=== PATIENT | female | born 1955 | race Caucasian/White ===

== ENCOUNTER 2024-08-28 06:34 | Inpatient (IN) | payer MEDICARE ==
[~2024-08-28] VITALS: Ht 165.1 cm; Wt 84.4 kg
[~2024-08-28 06:34] MED LIST: AMARYL1 MG PO; CITALOPRAM40 MG PO; JANUVIA100 MG PO; LISINOPRIL10 MG PO; METFORMIN1000 MG PO; PRILOSEC20 MG PO; PROTONIX40 MG PO; ZANTAC150 MG PO
[2024-08-28 06:39] VITALS: BP 150/53
[2024-08-28] MEDS ORDERED: ELIQUIS5 M1 PO (06:53)
[2024-08-28] MEDS ORDERED: AMIODARONE HYD200 MG PO (06:53)
[2024-08-28] MEDS ORDERED: CARBIDOPA-LEVO1 EAC1 PO (06:54)
[2024-08-28] MEDS ORDERED: CITALOPRAM20 MG PO (06:54)
[2024-08-28] MEDS ORDERED: JARDIANCE10 MG PO (06:55)
[2024-08-28] MEDS ORDERED: COLACE100 MG PO (06:55)
[2024-08-28] MEDS ORDERED: FLOMAX0.4 MG PO (06:57)
[2024-08-28] MEDS ORDERED: FENTANYL1 EAC3 T (06:57)
[2024-08-28] MEDS ORDERED: GLIMEPIRIDE4 M1 PO (06:58)
[2024-08-28] MEDS ORDERED: LANTUS100 UNIT/1 SQ (06:59)
[2024-08-28] MEDS ORDERED: LASIX20 MG PO (07:00)
[2024-08-28] MEDS ORDERED: LOSARTAN POTAS100 M1 PO (07:00)
[2024-08-28] MEDS ORDERED: METHIMAZOLE5 M1 PO (07:02)
[2024-08-28] MEDS ORDERED: METOPROLOL SUCC50 M1 PO (07:03)
[2024-08-28] MEDS ORDERED: OMEPRAZOLE MAGN20 MG PO (07:04)
[2024-08-28] MEDS ORDERED: PERCOCET 10-321 EACH PO (07:04)
[2024-08-28] MEDS ORDERED: PRESERVISION A1 EAC7 PO (07:05)
[2024-08-28] MEDS ORDERED: ROSUVASTATIN CAL5 MG PO (07:06)
[2024-08-28] MEDS ORDERED: VITAMIN D350 MC3 PO (07:08)
[2024-08-28 07:13] LABS: BASO % 0.3 % (0.0-1.0); EOS # 0.2 10*3/uL (0.0-0.4); EOS % 1.8 % (1.0-4.0); HEMATOCRIT 30.2 % (37.0-47.0); MEAN CELL VOLUME 97.1 fl (81.0-99.0); MEAN CORPUSCULAR HGB 29.6 pg (27.0-31.0); MEAN CORPUSCULAR HGB CONC 30.5 g/dl (33.0-37.0); MEAN PLATELET VOLUME 8.7 fl (9.6-12.3); MONO # 0.7 10*3/uL (0.1-1.0); MONO % 7.7 % (3.0-9.0); NEUT # 7.2 10*3/uL (2.3-7.9); NEUT % 80.9 % (47.0-73.0); PLATELET COUNT AUTOMATED 276 10*3/uL (130-400); RED BLOOD COUNT 3.11 10*6/uL (4.10-5.10); RED CELL DISTRI WIDTH 14.7 % (0-14.5); WHITE BLOOD COUNT 8.9 10*3/uL (4.8-10.8)
[2024-08-28 07:49] LABS: POTASSIUM 4.3 mmol/L (3.4-5.1)
[2024-08-28 08:12] LABS: BILIRUBIN Negative (Negative); BLOOD 2+ (Negative); CLARITY Turbid (Clear); COLOR Red (Yellow); GLUCOSE Negative (Negative); KETONE Negative (Negative); LEUKO ESTERASE 3+ (Negative); NITRITE Negative (Negative); UROBILINOGEN 0.2 E.U./dl (0.0-1.0)
[2024-08-28 08:18] LABS: RBC TNTC rbc/hpf (0-2)
[2024-08-28] MEDS ORDERED: Ceftriaxone Sodium 1 GM/10 ML SYR IV ONE (08:20)
[2024-08-28] MEDS ORDERED: DEXTROSE 5% IN LACTATED RINGER 1,000 ML IV SCH (08:20)
[2024-08-28] MEDS ORDERED: Ondansetron Hydrochloride 4 MG/2 ML VIAL IV ONE (11:00)
[2024-08-28] MEDS ORDERED: DEXTROSE 50% 25 GM/50 ML SYR IV ONE ×3 (11:25→19:20)
[2024-08-28 12:08] VITALS: BP 128/51
[2024-08-28] MEDS ORDERED: MORPHINE Sulfate 2 MG/ML SYR IV PRN (13:20)
[2024-08-28] MEDS ORDERED: ACETAMINOPHEN 650 MG SUPP R PRN (13:20)
[2024-08-28] MEDS ORDERED: Magnesium Hydroxide 30 ML UDC PO PRN (13:20)
[2024-08-28] MEDS ORDERED: BISACODYL 5 MG TAB PO PRN (13:20)
[2024-08-28] MEDS ORDERED: Acetaminophen/Hydrocodone 5 MG/325 MG TABLET PO PRN (13:20)
[2024-08-28] MEDS ORDERED: Ondansetron Hydrochloride 4 MG/2 ML VIAL IV PRN (13:20)
[2024-08-28] MEDS ORDERED: ACETAMINOPHEN 325 MG TAB PO PRN (13:20)
[2024-08-28] MEDS ORDERED: BISACODYL 10 MG SUPP R PRN (13:20)
[2024-08-28] MEDS ORDERED: SODIUM CHLORIDE 0.9% 1,000 ML IV SCH (13:30)
[2024-08-28] MEDS ORDERED: fentaNYL 25 MCG PATCH T SCH (14:30)
[2024-08-28] MEDS ORDERED: DEXTROSE 10 % IN WATER 250 ML IV PRN (14:40)
[2024-08-28] MEDS ORDERED: INSULIN LISPRO 1 UNIT/0.01 ML SQ SCH (16:30)
[2024-08-28 17:30] VITALS: BP 125/59
[2024-08-28] MEDS ORDERED: DEXTROSE 50% 25 GM/50 ML VIAL IV ONE (19:34)
[2024-08-28 20:00] VITALS: BP 137/49
[2024-08-28] MEDS ORDERED: DEXTROSE 50% 25 GM/50 ML VIAL IV PRN (21:20)
[2024-08-28] MEDS ORDERED: Carbidopa/Levodopa 25/100MG 1 TAB TAB PO SCH (22:00)
[2024-08-28] MEDS ORDERED: APIXABAN 5 MG TAB PO SCH (22:00)
[2024-08-28] MEDS ORDERED: HEPARIN SODIUM 5,000 UNIT/ML VIAL SC SCH (22:00)
[2024-08-28] MEDS ORDERED: ENTACAPONE 200 MG TAB PO SCH (22:00)
[2024-08-29] MEDS ORDERED: DEXTROSE 5% IN LACTATED RINGER 1,000 ML IV SCH ×2 (01:40→12:40)
[2024-08-29 06:31] LABS: HEMATOCRIT 27.6 % (37.0-47.0); RED CELL DISTRI WIDTH 14.5 % (0-14.5)
[2024-08-29 06:45] LABS: BASO % 0.2 % (0.0-1.0); EOS # 0.2 10*3/uL (0.0-0.4); EOS % 1.9 % (1.0-4.0); MEAN CORPUSCULAR HGB CONC 32.2 g/dl (33.0-37.0); MEAN PLATELET VOLUME 9.5 fl (9.6-12.3); MONO % 9.1 % (3.0-9.0); NEUT # 8.4 10*3/uL (2.3-7.9); NEUT % 77.2 % (47.0-73.0); PLATELET COUNT AUTOMATED 305 10*3/uL (130-400); RED BLOOD COUNT 2.97 10*6/uL (4.10-5.10); WHITE BLOOD COUNT 10.9 10*3/uL (4.8-10.8)
[2024-08-29 06:47] LABS: ALKALINE PHOSPHATASE 96 U/L (46-116); BUN 56 mg/dl (9-23); CHLORIDE 94 mmol/L (98-107); CHOLESTEROL 114 mg/dL (<200); FREE T4 1.64 ng/dl (0.89-1.76); LDL CHOLESTEROL 51 mg/dL (9-159); MEAN CELL VOLUME 92.9 fl (81.0-99.0); TOTAL PROTEIN 6.5 gm/dL (6.0-8.0); TRIGLYCERIDES 134 mg/dl (<150)
[2024-08-29 06:59] LABS: SGPT/ALT < 7 U/L (5-49)
[2024-08-29 07:52] LABS: VITAMIN D, 25-HYDROXY 43.4 ng/mL (30-100)
[2024-08-29 08:00] VITALS: BP 140/51
[2024-08-29] MEDS ORDERED: Amiodarone Hydrochloride 200 MG TAB PO SCH (10:00)
[2024-08-29] MEDS ORDERED: METOPROLOL SUCCINATE XR 50 MG TAB PO SCH (10:00)
[2024-08-29] MEDS ORDERED: CITALOPRAM 20 MG TAB PO SCH (10:00)
[2024-08-29] MEDS ORDERED: METHIMAZOLE 5 MG TABLET PO SCH (10:00)
[2024-08-29] MEDS ORDERED: Losartan Potassium 100 MG TABLET PO SCH (10:00)
[2024-08-29] MEDS ORDERED: Glucagon Hydrochloride 1 MG SYR IV ONE (10:25)
[2024-08-29 11:30] VITALS: BP 105/33
[2024-08-29] MEDS ORDERED: Ondansetron Hydrochloride 4 MG/2 ML VIAL IV ONE (12:15)
[2024-08-29] MEDS ORDERED: Metoclopramide Hydrochloride 10 MG/2 ML VIAL IV SCH (12:20)
[2024-08-29] MEDS ORDERED: DEXTROSE 5% 1,000 ML IV SCH (12:35)
[2024-08-29] MEDS ORDERED: Scopolamine 1 PATCH PATCH T SCH (13:00)
[2024-08-29] MEDS ORDERED: Lidocaine Hydrochloride 30 ML VIAL SC ONE (13:35)
[2024-08-29] MEDS ORDERED: Lidocaine Hydrochloride 30 ML VIAL ONE (13:39)
[2024-08-29 16:00] VITALS: BP 128/39
[2024-08-29 20:00] VITALS: BP 125/57
[2024-08-29] MEDS ORDERED: SODIUM CHLORIDE 0.9% IV SCH (20:00)
[2024-08-29] MEDS ORDERED: MICAFUNGIN SODIUM IV SCH (20:00)
[2024-08-29] MEDS ORDERED: FLUCONAZOLE 100 ML IV SCH (20:00)
[2024-08-29] MEDS ORDERED: Piperacillin Sodium/Tazobact 2.25 GM in SODIUM CHLORIDE 0.9% 50 ML IV SCH (22:00)
[2024-08-30] VITALS (7 sets, daily range): BP systolic 122–148; BP diastolic 49–59
[2024-08-30 05:51] LABS: POTASSIUM 5.8 mmol/L (3.4-5.1)
[2024-08-30 06:16] LABS: HEMATOCRIT 28.5 % (37.0-47.0); MEAN CELL VOLUME 91.9 fl (81.0-99.0); MEAN CORPUSCULAR HGB CONC 31.6 g/dl (33.0-37.0); MEAN PLATELET VOLUME 9.4 fl (9.6-12.3); PLATELET COUNT AUTOMATED 290 10*3/uL (130-400); RED CELL DISTRI WIDTH 14.5 % (0-14.5); WHITE BLOOD COUNT 19.5 10*3/uL (4.8-10.8)
[2024-08-30 07:32] LABS: MANUAL DIFF REFLEX YES
[2024-08-30 07:35] LABS: BURR CELLS FEW; OVALOCYTES FEW; PLATELET SUFFICIENCY NORMAL (NORMAL); POLYCHROMASIA SLIGHT; TOTAL CELLS COUNTED 100 #CELLS
[2024-08-30] MEDS ORDERED: SODIUM POLYSTYRENE SULFONATE 15 GM/60 ML BOT PO ONE (08:45)
[2024-08-30] MEDS ORDERED: HEPARIN SODIUM 5,000 UNIT/ML VIAL IV SCH (10:00)
[2024-08-30] MEDS ORDERED: Labetalol Hydrochloride 20 MG/4 ML SYR IV PRN (13:00)
[2024-08-30] MEDS ORDERED: SODIUM BICARBONATE 50 MEQ in DEXTROSE 5% 1,000 ML IV SCH (16:00)
[2024-08-30] MEDS ORDERED: SODIUM POLYSTYRENE SULFONATE 15 GM/60 ML BOT R ONE (16:35)
[2024-08-30] MEDS ORDERED: Metoprolol Tartrate 5 MG/5 ML VIAL IV SCH (18:00)
[2024-08-30] MEDS ORDERED: Doxycycline Hyclate 100 MG in SODIUM CHLORIDE 0.9% 250 ML IV SCH (20:00)
[2024-08-30 22:30] LABS: POTASSIUM 5.6 mmol/L (3.4-5.1)
[2024-08-31] VITALS: BP 127/50
[2024-08-31 04:00] VITALS: BP 118/62
[2024-08-31 05:08] LABS: POTASSIUM 5.3 mmol/L (3.4-5.1)
[2024-08-31 06:33] LABS: BASO % 0.1 % (0.0-1.0); EOS # 0.1 10*3/uL (0.0-0.4); HEMATOCRIT 22.9 % (37.0-47.0); MEAN CELL VOLUME 91.6 fl (81.0-99.0); MEAN CORPUSCULAR HGB 30.4 pg (27.0-31.0); MEAN CORPUSCULAR HGB CONC 33.2 g/dl (33.0-37.0); MEAN PLATELET VOLUME 9.5 fl (9.6-12.3); MONO # 0.7 10*3/uL (0.1-1.0); MONO % 5.1 % (3.0-9.0); NEUT # 12.5 10*3/uL (2.3-7.9); NEUT % 89.2 % (47.0-73.0); PLATELET COUNT AUTOMATED 236 10*3/uL (130-400); RED CELL DISTRI WIDTH 14.6 % (0-14.5); WHITE BLOOD COUNT 14.1 10*3/uL (4.8-10.8)
[2024-08-31 08:00] VITALS: BP 121/67
== END 2024-08-31 08:00 | disposition short-term general hospital (02) | DRG 698 ==
LOC: ED 06:34 → EDHOLD 12:32 → ICCU 12:32 → 4E 16:11 → ICCU 08-29 11:20
PROVIDERS: Internal Medicine; Nurse Practitioner Family; Student in an Organized Health Care Education/Training Program; ADMIT Internal Medicine; ATTEND Internal Medicine
PROC: 02HV33Z Insertion of Infusion Device into Superior Vena Cava, Percutaneous Approach (ICD-10-PCS; principal; 2024-08-29)
PROC: B548ZZA Ultrasonography of Superior Vena Cava, Guidance (ICD-10-PCS; 2024-08-29)
DX: T83.593A Infection and inflammatory reaction due to other urinary stents, initial encounter (principal); A41.9 Sepsis, unspecified organism; G93.41 Metabolic encephalopathy; I21.4 Non-ST elevation (NSTEMI) myocardial infarction; J18.9 Pneumonia, unspecified organism; J96.01 Acute respiratory failure with hypoxia; N17.0 Acute kidney failure with tubular necrosis; R65.20 Severe sepsis without septic shock; I50.32 Chronic diastolic (congestive) heart failure; B49 Unspecified mycosis; N13.6 Pyonephrosis; I13.0 Hypertensive heart and chronic kidney disease with heart failure and stage 1 through stage 4 chronic kidney disease, or unspecified chronic kidney disease; D84.9 Immunodeficiency, unspecified; E55.9 Vitamin D deficiency, unspecified; E11.649 Type 2 diabetes mellitus with hypoglycemia without coma; F32.A Depression, unspecified; I48.0 Paroxysmal atrial fibrillation; Z66 Do not resuscitate; E78.5 Hyperlipidemia, unspecified; R33.9 Retention of urine, unspecified; E05.90 Thyrotoxicosis, unspecified without thyrotoxic crisis or storm; K59.00 Constipation, unspecified; Z96.0 Presence of urogenital implants; Y83.8 Other surgical procedures as the cause of abnormal reaction of the patient, or of later complication, without mention of misadventure at the time of the procedure; N18.9 Chronic kidney disease, unspecified; E11.22 Type 2 diabetes mellitus with diabetic chronic kidney disease; M48.061 Spinal stenosis, lumbar region without neurogenic claudication; I25.10 Atherosclerotic heart disease of native coronary artery without angina pectoris; Z90.49 Acquired absence of other specified parts of digestive tract; Y92.89 Other specified places as the place of occurrence of the external cause; Z79.4 Long term (current) use of insulin; Z91.041 Radiographic dye allergy status; Z79.899 Other long term (current) drug therapy; Z82.49 Family history of ischemic heart disease and other diseases of the circulatory system; Z80.1 Family history of malignant neoplasm of trachea, bronchus and lung; Z79.1 Long term (current) use of non-steroidal anti-inflammatories (NSAID); Z68.30 Body mass index [BMI] 30.0-30.9, adult

== ENCOUNTER 2024-11-11 22:27 | Observation (INO) | payer MEDICARE ==
[~2024-11-11] VITALS: Ht 160 cm; Wt 75.4 kg
[~2024-11-11 22:27] MED LIST changes: +AMIODARONE HYD200 MG PO; +CARBIDOPA-LEVO1 EAC1 PO; +CITALOPRAM20 MG PO; +COLACE100 MG PO; +ELIQUIS5 M1 PO; +FENTANYL1 EAC3 T; +FLOMAX0.4 MG PO; +GLIMEPIRIDE4 M1 PO; +JARDIANCE10 MG PO; +LANTUS100 UNIT/1 SQ; +LASIX20 MG PO; +LOSARTAN POTAS100 M1 PO; +METHIMAZOLE5 M1 PO; +METOPROLOL SUCC50 M1 PO; +OMEPRAZOLE MAGN20 MG PO; +PERCOCET 10-321 EACH PO; +PRESERVISION A1 EAC7 PO; +ROSUVASTATIN CAL5 MG PO; +VITAMIN D350 MC3 PO
[2024-11-11 22:35] VITALS: BP 101/66
[2024-11-11] MEDS ORDERED: ACETAMINOPHEN 325 MG TAB PO ONE (23:30)
[2024-11-11] MEDS ORDERED: Ketorolac Tromethamine 30 MG/ML VIAL IV ONE (23:30)
[2024-11-11] MEDS ORDERED: Doxycycline Hyclate 100 MG CAP PO ONE (23:30)
[2024-11-11] MEDS ORDERED: SODIUM CHLORIDE 0.9% 500 ML IV ONE (23:30)
[2024-11-11] MEDS ORDERED: Piperacillin Sodium/Tazobact 100 ML IV ONE (23:30)
[2024-11-11 23:52] LABS: BASO % 0.3 % (0.0-1.0); EOS % 0.3 % (1.0-4.0); HEMATOCRIT 27.6 % (37.0-47.0); MEAN CELL VOLUME 97.9 fl (81.0-99.0); MEAN CORPUSCULAR HGB 30.1 pg (27.0-31.0); MEAN CORPUSCULAR HGB CONC 30.8 g/dl (33.0-37.0); MEAN PLATELET VOLUME 9.2 fl (9.6-12.3); MONO # 0.6 10*3/uL (0.1-1.0); MONO % 15.3 % (3.0-9.0); NEUT # 2.7 10*3/uL (2.3-7.9); NEUT % 67.3 % (47.0-73.0); PLATELET COUNT AUTOMATED 224 10*3/uL (130-400); RED BLOOD COUNT 2.82 10*6/uL (4.10-5.10); RED CELL DISTRI WIDTH 17.2 % (0-14.5); WHITE BLOOD COUNT 3.9 10*3/uL (4.8-10.8)
[2024-11-12 00:13] LABS: ACT PARTIAL THROMBO TIME 27.5 SECONDS (20.0-32.1)
[2024-11-12 00:23] LABS: POTASSIUM 3.9 mmol/L (3.4-5.1); TOTAL PROTEIN 6.5 gm/dL (6.0-8.0)
[2024-11-12 02:05] LABS: BILIRUBIN Negative (Negative); BLOOD Trace-Lysed (Negative); CLARITY Clear (Clear); COLOR Yellow (Yellow); GLUCOSE Negative (Negative); KETONE Negative (Negative); LEUKO ESTERASE Negative (Negative); NITRITE Negative (Negative); PH 5.5 (4.5-8.0); UROBILINOGEN 0.2 E.U./dl (0.0-1.0)
[2024-11-12 02:19] LABS: BACTERIA TRACE
[2024-11-12 03:10] VITALS: BP 103/45; BP 84/58
[2024-11-12 04:07] VITALS: BP 110/46
[2024-11-12] MEDS ORDERED: ACETAMINOPHEN500 M4 PO (05:08)
[2024-11-12] MEDS ORDERED: AIRSUPRA 90-810.7 GM INH (05:09)
[2024-11-12] MEDS ORDERED: NORVASC10 MG PO (05:10)
[2024-11-12] MEDS ORDERED: CEPHALEXIN250 M1 PO (05:11)
[2024-11-12] MEDS ORDERED: DULCOLAX10 M1 R (05:12)
[2024-11-12] MEDS ORDERED: FEROSUL325 MG PO (05:13)
[2024-11-12] MEDS ORDERED: GLIMEPIRIDE2 MG PO (05:13)
[2024-11-12] MEDS ORDERED: GLUCOSE GEL38 GM PO (05:14)
[2024-11-12] MEDS ORDERED: HUMALOG KW200 UNIT/1 SQ (05:15)
[2024-11-12] MEDS ORDERED: Ipratropium Brom3 ML INH (05:15)
[2024-11-12] MEDS ORDERED: LIDOCAINE PAIN1 EACH T (05:16)
[2024-11-12] MEDS ORDERED: MAGOX 400400 MG PO (05:16)
[2024-11-12] MEDS ORDERED: LEXAPRO20 MG PO (05:16)
[2024-11-12] MEDS ORDERED: METFORMIN HYD1000 MG PO (05:17)
[2024-11-12] MEDS ORDERED: PRILOSEC20 M1 PO (05:18)
[2024-11-12] MEDS ORDERED: Ondansetron4 MG PO (05:18)
[2024-11-12] MEDS ORDERED: METOPROLOL TART75 MG PO (05:18)
[2024-11-12] MEDS ORDERED: PERCOCET 5-3251 EACH PO (05:19)
[2024-11-12] MEDS ORDERED: KLOR-CON M1010 ME1 PO (05:20)
[2024-11-12] MEDS ORDERED: TIZANIDINE2 MG PO (05:22)
[2024-11-12 08:54] VITALS: BP 123/57
[2024-11-12] MEDS ORDERED: Magnesium Hydroxide 30 ML UDC PO PRN (15:45)
[2024-11-12] MEDS ORDERED: MORPHINE Sulfate 2 MG/ML SYR IV PRN (15:45)
[2024-11-12] MEDS ORDERED: ACETAMINOPHEN 325 MG TAB PO PRN (15:45)
[2024-11-12] MEDS ORDERED: BISACODYL 10 MG SUPP R PRN (15:45)
[2024-11-12] MEDS ORDERED: ACETAMINOPHEN 325 MG TAB PO ONE (15:45)
[2024-11-12] MEDS ORDERED: Acetaminophen/Hydrocodone 5 MG/325 MG TABLET PO PRN (15:45)
[2024-11-12] MEDS ORDERED: ACETAMINOPHEN 650 MG SUPP R PRN (15:45)
[2024-11-12] MEDS ORDERED: BISACODYL 5 MG TAB PO PRN (15:45)
[2024-11-12] MEDS ORDERED: TEMAZEPAM 15 MG CAP PO PRN (15:45)
[2024-11-12] MEDS ORDERED: Pantoprazole Sodium 40 MG TAB PO PRN (15:55)
[2024-11-12 17:22] VITALS: BP 126/65
[2024-11-12] MEDS ORDERED: Piperacillin Sodium/Tazobact 2.25 GM in SODIUM CHLORIDE 0.9% 50 ML IV SCH (18:00)
[2024-11-12] MEDS ORDERED: DEXTROSE 10 % IN WATER 250 ML IV PRN (18:15)
[2024-11-12 20:53] VITALS: BP 118/59
[2024-11-12] MEDS ORDERED: fentaNYL 25 MCG PATCH T SCH (21:35)
[2024-11-12] MEDS ORDERED: INSULIN LISPRO 1 UNIT/0.01 ML SQ SCH (22:00)
[2024-11-12] MEDS ORDERED: APIXABAN 5 MG TAB PO SCH (22:00)
[2024-11-12] MEDS ORDERED: Doxycycline Hyclate 100 MG CAP PO SCH (22:00)
[2024-11-13] MEDS ORDERED: LIDOCAINE 4% PATCH T SCH (10:00)
[2024-11-13] MEDS ORDERED: ROSUVASTATIN 5 MG PO SCH (10:00)
[2024-11-13] MEDS ORDERED: OMEPRAZOLE 20 MG CAP PO SCH (10:00)
[2024-11-13] MEDS ORDERED: METHIMAZOLE 5 MG TABLET PO SCH (10:00)
[2024-11-13] MEDS ORDERED: ENTACAPONE PO SCH (10:00)
[2024-11-13] MEDS ORDERED: amLODIPine besylate 10 MG TAB PO SCH (10:00)
[2024-11-13] MEDS ORDERED: LEVODOP PO SCH (10:00)
[2024-11-13] MEDS ORDERED: Metoprolol Tartrate 100 MG TAB PO SCH (10:00)
[2024-11-13] MEDS ORDERED: Tamsulosin Hydrochloride 0.4 MG CAP PO SCH (10:00)
[2024-11-13] MEDS ORDERED: Amiodarone Hydrochloride 200 MG TAB PO SCH (10:00)
[2024-11-13] MEDS ORDERED: FUROSEMIDE 20 MG/2 ML VIAL IV SCH (10:00)
[2024-11-13] MEDS ORDERED: CARBIDOPA PO SCH (10:00)
[2024-11-13] MEDS ORDERED: ESCITALOPRAM OXALATE 20 MG TAB PO SCH (10:00)
== END 2024-11-12 21:32 | disposition short-term general hospital (02) ==
LOC: ED 22:27 → EDHOLD 11-12 15:25
PROVIDERS: Emergency Medicine; ADMIT Internal Medicine; ATTEND Internal Medicine
DX: A41.9 Sepsis, unspecified organism (principal); R50.82 Postprocedural fever; J96.02 Acute respiratory failure with hypercapnia; R65.20 Severe sepsis without septic shock; R53.1 Weakness; R06.82 Tachypnea, not elsewhere classified; D64.9 Anemia, unspecified; E80.6 Other disorders of bilirubin metabolism; R74.02 Elevation of levels of lactic acid dehydrogenase [LDH]; R79.82 Elevated C-reactive protein (CRP); E44.0 Moderate protein-calorie malnutrition; K57.90 Diverticulosis of intestine, part unspecified, without perforation or abscess without bleeding; E11.9 Type 2 diabetes mellitus without complications; I48.91 Unspecified atrial fibrillation; E55.9 Vitamin D deficiency, unspecified; E78.2 Mixed hyperlipidemia; I10 Essential (primary) hypertension; R82.81 Pyuria; D72.819 Decreased white blood cell count, unspecified; Z79.4 Long term (current) use of insulin; Z79.82 Long term (current) use of aspirin; Z79.899 Other long term (current) drug therapy